=== PATIENT | male | born 2000 | race Two or more races ===

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

== ENCOUNTER 2021-07-11 15:24 | Emergency (ER) | payer SELFPAY ==
[~2021-07-11] VITALS: Ht 172.7 cm; Wt 71.7 kg
[2021-07-11] MEDS ORDERED: IBUP800T27 PO (17:11)
[2021-07-11] MEDS ORDERED: AMOX-277 PO (17:11)
[2021-07-11] MEDS ORDERED: KETOROLAC TROMETH 60MG/2ML VIAL IM ONE (17:15)
[2021-07-11] MEDS ORDERED: cefTRIAXone SOD 1,000 MG VL IM ONE (17:15)
[2021-07-11 17:51] VITALS: BP 136/91
== END 2021-07-11 17:59 | disposition home or self-care (01) ==
LOC: ER 15:24
DX: H66.92 Otitis media, unspecified, left ear (principal)
CPT/HCPCS: 96372; 99284; J0696; J1885